=== PATIENT | male | born 1970 | race African-American/Black ===

== ENCOUNTER 2024-06-03 12:26 | Emergency (ER) | payer OTHER ==
[2024-06-03 13:01] VITALS: BP 138/84; PULSE 63; RESP 16; TEMP 98.1; BMI 22.4
[2024-06-03] MEDS: ACETAMINOPHEN 500 MG TABLET (FP) PO ONE (13:01)
== END 2024-06-03 14:00 | disposition home or self-care (01) ==
LOC: FER 12:26
DX: S09.90XA Unspecified injury of head, initial encounter (principal); W01.198A Fall on same level from slipping, tripping and stumbling with subsequent striking against other object, initial encounter; Y92.002 Bathroom of unspecified non-institutional (private) residence as the place of occurrence of the external cause
CPT/HCPCS: 70450-TC; 72125-TC; 99284-25